=== PATIENT | female | born 1950 | race American Indian/Alaskan Native ===

== ENCOUNTER → 2023-09-28 | Outpatient (CLI) | payer MEDICARE, BC ==
--- NOTE | 2023-10-27 13:47 | MM ---
EXAM: MG 3D diag mammo w/cad KINJAL DATE OF EXAM: 09/29/2023 4:26 PM COMPARISON STUDIES: 12/21/2019 Bilateral Screening Mammogram, [facility]. 09/14/2020 Bilateral Diagnostic Mammogram, [facility]. 09/16/2023 Bilateral Screening Mammogram, [facility]. PATIENT HISTORY:Female, 72 years old with history of c50.912 prev breast cancer; , Menarche at age 16. First Full-Term at age 19. Left ovary removed at age 48. Right ovary removed at age 48. Hysterectomy at age 48. Postmenopausal. Breast cancer, left, age 68. Previous chest radiation therapy at age 68. Maternal aunt had breast cancer. Maternal aunt had breast cancer. Niece had breast cancer under age 50. Mother had breast cancer under age 50. , RISK CALCULATION: TISSUE DENSITY: Heterogeneously dense FINDINGS: No new suspicious masses, calcifications or distortions. ASSESSMENT: 1 - Negative RECOMMENDATION: 1. Screening Mammogram Bilateral in 1 Year . COMMENTS: Results were given to the patient verbally at the time of exam. Patient should continue monthly self-breast exams. A clinical breast exam by your physician is recommended on an annual basis. This exam should not preclude additional follow-up of suspicious palpable abnormalities. Note on Sobia scores and lifetime risk: 1. A Sobia score greater than 3% is considered moderate risk. If this is the case, consider specialist referral to assess eligibility for a risk reducing agent. 2. If overall lifetime risk for the development of breast cancer is 20% or higher, the patient may qualify for future screening with alternating mammogram and breast MRI. JACLYN
== END | disposition home or self-care (01) ==
LOC: RADMAMWWP 15:00
PROVIDERS: ATTEND Family Medicine
DX: R92.333 Mammographic heterogeneous density, bilateral breasts (principal); Z85.3 Personal history of malignant neoplasm of breast; Z80.3 Family history of malignant neoplasm of breast; Z78.0 Asymptomatic menopausal state
CPT/HCPCS: 77066; G0279; 77062

== ENCOUNTER → 2023-09-28 | Outpatient (CLI) | payer MEDICARE, BC ==
--- NOTE | 2023-09-29 18:53 | BD ---
EXAMINATION TYPE: Axial Bone Density DATE OF EXAM: 09/28/2023 CLINICAL HISTORY: 72 years old Female. ICD-10 CODE: C50.912 BR CA Height: 66.25" Weight: 214.6lbs FRAX RISK QUESTIONS: Alcohol (3 or more units per day): No Family History (Parent hip fracture): No Glucocorticoids (More than 3mos): No (Ex: prednisone, prednisolone, methylprednisolone, dexamethasone, and hydrocortisone). History of Fracture in Adulthood: No Secondary Osteoporosis: 1. Type 1 Diabetes: No 2. Hyperthyroidism: No 3. Menopause before 45: No 4. Malnutrition: No 5. Chronic liver disease: No Rheumatoid Arthritis: No Current Tobacco Use: No RISK FACTORS HISTORY OF: Hip Fracture (Right/Left): No Spine Fracture: No History of Wrist Fracture: No Surgery to Spine/Hip(right/left)/Wrist (right/left): No Family History of Osteoporosis: No Active: Yes Diet low in dairy products/other sources of calcium: No Postmenopausal woman: Yes Lost more than 2 inches in height since high school: No Frequent falls: No Poor Health: No Hyperparathyroidism: No Adrenal Insufficiency: No MEDICATIONS: Prednisone or other steroids: No Thyroid Medications: Yes Which medication: Levothyroxine How Long: Since 2001 Osteoporosis Medications: No Additional Medications: Levothyroxine, Calcium supplements, blood pressure meds, cholesterol meds, me tformin Additional History: Hx of breast cancer, hx of radiation EXAM MEASUREMENTS: Bone mineral densitometry was performed using the [employer]. Bone mineral density as measured about the Lumbar spine is: ----- L1-L4(G/cm2): 1.347 T Score Values are as follows: ----- L1: 1.6 ----- L2: 0.7 ----- L3: 1.4 ----- L4: 1.7 ----- L1-L4: 1.4 Z Score Values are as follows: ----- L1: 2.2 ----- L2: 1.3 ----- L3: 2.0 ----- L4: 2.3 ----- L1-L4: 2.0 Baseline @MPH Bone mineral density about the R hip (g/cm2): 1.015 Bone mineral density about the L hip (g/cm2): 0.984 T Score values are as follows: -----R Neck: 0.1 -----L Neck: -0.5 -----R Total: 0.1 -----L Total: -0.2 Z Score values are as follows: -----R Neck: 1.2 -----L Neck: 0.5 -----R Total: 0.9 -----L Total: 0.6 Baseline @MPH FRAX%s: The graph provided illustrates a 7.7% chance for a major osteoporotic fx and a 0.6% chance fo r the hips probability for fx in 10 years time. IMPRESSION: Normal (Values between +1 and -1 indicate normal bone mass). Consider repeating this study in 5 year s or sooner if there is some new clinical indication. NOTE: T-SCORE=SD OF THE YOUNG ADULT MEAN.
== END | disposition home or self-care (01) ==
LOC: RADBDWWP 09-03 13:30
PROVIDERS: ATTEND Internal Medicine
DX: C50.912 Malignant neoplasm of unspecified site of left female breast (principal); M85.88 Other specified disorders of bone density and structure, other site; Z71.3 Dietary counseling and surveillance; Z78.0 Asymptomatic menopausal state
CPT/HCPCS: 77062; 77066; 77080

== ENCOUNTER → 2024-09-29 | Outpatient (CLI) | payer MEDICARE, BC ==
--- NOTE | 2024-10-03 12:21 | MM ---
Reason for Exam: Screening (asymptomatic). Last screening mammogram was performed 12 month(s) ago. Patient History: Menarche at age 16. First Full-Term at age 19. Left ovary removed at age 48. Right ovary removed at age 48. Hysterectomy at age 48. Postmenopausal. Breast cancer, left, age 68. Previous chest radiation therapy at age 68. Maternal aunt had breast cancer. Maternal aunt had breast cancer. Niece had breast cancer under age 50. Mother had breast cancer under age 50. Prior Study Comparison: 09/14/2020 Bilateral Diagnostic Mammogram, [facility]. 09/16/2023 Bilateral Screening Mammogram, [facility]. 09/28/2023 Bilateral MG 3D diag mammo w/cad KINJAL, [facility]. Tissue Density: There are scattered areas of fibroglandular density. Findings: Analyzed By CAD. Right breast: There is no suspicious group of microcalcifications or new suspicious mass. Benign-appearing calcifications right breast. Left breast: There is no suspicious group of microcalcifications or new suspicious mass. Overall Assessment: Benign, BI-RAD 2 Management: Screening Mammogram of both breasts in [address] [facility] will attempt to contact patient to return for supplemental views and ultrasound if indicated. Patient should continue monthly self-breast exams. A clinical breast exam by your physician is recommended on an annual basis. This exam should not preclude additional follow-up of suspicious palpable abnormalities. Note on Sobia scores and lifetime risk: 1. A Sobia score greater than 3% is considered moderate risk. If this is the case, consider specialist referral to assess eligibility for a risk reducing agent. 2. If overall lifetime risk for the development of breast cancer is 20% or higher, the patient may qualify for future screening with alternating mammogram and breast MRI. [facility], , 10/03/2024 12:19 PM. Electronically signed and approved by: Manuel Riojas DO
== END | disposition home or self-care (01) ==
LOC: RADMAMWWP 10:15
PROVIDERS: ATTEND Internal Medicine
DX: Z12.31 Encounter for screening mammogram for malignant neoplasm of breast (principal); Z78.0 Asymptomatic menopausal state; Z80.3 Family history of malignant neoplasm of breast; Z90.722 Acquired absence of ovaries, bilateral; Z85.3 Personal history of malignant neoplasm of breast; R92.323 Mammographic fibroglandular density, bilateral breasts
CPT/HCPCS: 77063; 77067